=== PATIENT | male | born 2000 | race Asian ===

== ENCOUNTER 2023-09-14 14:45 | Outpatient (CLI) | payer OTHER ==
--- NOTE | 2023-09-14 22:06 | SLEEP CARE CONSULTATION ---
Information from patient questionnaire entered by Krys Lopez. I have reviewed and concur with the information entered by Krys Lopez. This document represents the service I personally performed and the decisions made by me, Shannan Wilkinson MD, [facility]. History of Present Illness Service Date and Time: 09/14/2023 1445 Reason for Visit: New patient Chief Complaint: reports: Unrefreshed sleep, Excessive daytime sleepiness, Fatigue, Other (I FREQUENTLY SLEEP 12+HRS) Date of Onset: 4YRS Usual bedtime: 12AM Time it takes to fall asleep: 1HRS Snores at night: No Observed to quit breathing while asleep: Yes Sleeps alone due to snoring: No Number of times waking at night: 1 Reasons for waking at night: reports: Bathroom Toss, Turn, or Twitch while sleeping: No Recalls having dreams: Yes Usually gets out of bed at: 1-2 Feels refreshed in the morning: No Morning headache: No Sleepy or fatigued during the day: Yes Ever fallen asleep while driving: Yes Takes day naps: Yes Dreams during day naps: Yes Prior sleep studies: No Additional HPI information: I have the pleasure of seeing Mr. Sue and his mother today regarding the possibility of his having a sleep disorder. As you know, she is a 23-year-old man who complains of unrefreshed sleep, persistent fatigue, and excessive daytime sleepiness for the past 4 years. The patient tells me that he normally goes to bed around midnight 2 am, and it takes him approximately 60 minutes to fall asleep. He does not snore but his mother thinks she has seen him quit breathing at night. He can recall waking up on the average of 1 time during the night. Most of the time he wakes up because of having to use the bathroom. He has awakened because of choking. There is a lot of tossing and turning in sleep. No somniloquy (sleep talking) or somnambulism (sleep walking). Generally, he can recall having dreams. In the morning he usually gets up out of the bed around 1 2 pm not feeling refreshed nor rested. He usually does not have a morning headache. During the day he complains of feeling sleepy and fatigued. His score on [place] Sleepiness Scale is 7 out of 24. He has fallen asleep while driving and has gone out of the ronald. He usually takes a 1-2 hour nap during the day. Upon falling asleep during the day he reports having dreams. He has never had sleep paralysis, experienced cataplexy or symptoms of restless leg syndrome. He denies having impaired concentration during the day. He has electrical engineering degree from [employer]. 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 His sleep habits also prevented him from working regular hours. A few years ago, he ordered a WatchPat study online and it was reported a negative. - Parasomnia Symptoms Ever been unable to move upon waking from sleep: No Walks in sleep: No Talks in sleep: No Ever acted out dreams in sleep: No Ever felt weak in the knees when startled or emotional: No Bothered by creepy, crawly, restless sensations in legs: No Problems with memory or concentration: No Subjective Initial [place] Sleepiness Scale score: 7 (09/14/23) Past Medical History Past Medical History: reports: Anxiety, Depression Social History The patient's occupation is a [employer]. Patient is Single and lives in . Have you smoked in the past 12 months: No Alcohol use: No Caffeine use: Yes Caffeine amount and frequency: ONCE A WEEK Family History Family history of sleep disordered breathing: Yes Family Hx Sleep Apnea: Mother: Snoring Allergies and Home Medications Known drug allergies: No Drug allergies reviewed: Yes Home medication list reviewed: Yes Review of Systems Review of systems same as previous: Yes Cardiovascular: denies: high blood pressure, palpitations, chest pain, irregular heart rate or pulse, leg or foot swelling, have to sleep sitting up, other Respiratory: denies: shortness of breath, wheeze, sputum production, chronic cough, other Gastrointestinal: denies: heartburn, difficulty swallowing, nausea, vomitting, diarrhea, abdominal pain, other Urinary: denies: incontinence, frequency, urgency, impotence, other Neurological: denies: headaches, seizure, head trauma, disorientation, speech dysfunction, gait or balance problems, fainting or unconsciousness, other Psychiatric: reports: anxiety, depression Ear/Nose/Throat: denies: nasal congestion, sinus problems, nose bleeds, dry mouth/throat, hoarseness, injury to nose, tonsillectomy, wisdom teeth removed, other Endocrine: denies: thyroid disease, history of goiter, sluggishness, too hot or cold, excessive thirst, increased appetite, increased urination, unexplained weakness, other Musculoskeletal: denies: joint pain, neck pain, back pain, joint swelling, muscle pain or cramping, mobility problems, other Immunologic: reports: allergies to food or environment Physical Exam Vital signs obtained and entered by: KRYS Reed MA Blood Pressure: 131/83 (LEFT ARM) Cuff size: regular Heart Rate: 77 O2 Saturation: 100 Height: 6 ft Weight: 204 lb Body Mass Index: 27.6 BMI Classification: Overweight Neck circumference: 14.75 Mood/affect: Normal HEENT: No craniofacial malformation Nostrils: patent to airflow Turbinates: swollen (left) Septum: deviated left Mouth and throat: narrow oropharynx Soft palate: long Hard palate: normal Uvula: normal Uvula visualization: 50% Mallampati Class II Tongue: normal in size Tonsils: small Chin and jaw: normal size and position Neck: normal w/o lymphadenopathy or thyromegaly Heart: regular rate and rhythm Lungs: clear bilaterally Extremities: no edema or clubbing Neurologic: intact Impression and Plan IMPRESSION: 1. Delayed sleep phase syndrome, with the patient going to bed late and waking up late. His physiological bedtime appears to be around 2:30 am and he does not get up until noon or 1 pm. He mother mentioned that he was into online efrem. I advised him to try to get out of bed earlier and be exposed to bright light. For a start, I would like him to get up at 10 am. His bedtime can be at midnight. 2. Hypersomnia, with the patient reporting 9 hours of sleep a night and 1 2 hours of nap during the day. He does not symptoms of narcolepsy besides the daytime sleepiness. Olanzapine can also be sedating due to its high affinity for the histamine H1 receptors. Therefore, a multiple sleep latency test (MSLT) will not be ordered. Plan: 1. Schedule an in-laboratory polysomnography. 2. Avoid long distance driving or when feeling sleepy. 3. Avoid alcohol, sedative and muscle relaxant around bedtime. 4. Wakeup earlier at 10 am and get exposed to the sunlight. 5. Return for follow up after the sleep study. Follow up with Sleep Care in: 1-2 months Visit Type: In Office Other Participants: Other (mother) Time Spent with Patient (minutes): 15 Provider Statement: I spent 100% of the Face to Face Visit with the patient with greater than 50% spent counseling the patient and coordination of care.
[2023-09-14 22:07] VITALS: BP 131/83; O2SAT 100
== END 2023-09-14 14:46 | disposition home or self-care (01) ==
LOC: SC 14:45
PROVIDERS: ATTEND Internal Medicine Pulmonary Disease
DX: G47.21 Circadian rhythm sleep disorder, delayed sleep phase type (principal); G47.10 Hypersomnia, unspecified; R41.89 Other symptoms and signs involving cognitive functions and awareness; G47.8 Other sleep disorders; F32.A Depression, unspecified; Z79.899 Other long term (current) drug therapy; E66.3 Overweight; Z68.27 Body mass index [BMI] 27.0-27.9, adult
CPT/HCPCS: 99202; 99212

== ENCOUNTER 2023-09-17 19:36 | Outpatient (CLI) | payer OTHER | END 2023-09-17 19:37 | disposition home or self-care (01) | LOC: SC 19:36 | PROVIDERS: ATTEND Internal Medicine Pulmonary Disease | DX: G47.10 Hypersomnia, unspecified (principal); R41.89 Other symptoms and signs involving cognitive functions and awareness; G47.8 Other sleep disorders; F32.A Depression, unspecified | CPT/HCPCS: 95810 ==

== ENCOUNTER 2023-09-28 14:06 | Outpatient (CLI) | payer OTHER ==
--- NOTE | 2023-09-29 08:03 | SLEEP CARE CONSULTATION ---
Information from patient questionnaire entered by Sina Lopez. I have reviewed and concur with the information entered by Sina Lopez. This document represents the service I personally performed and the decisions made by me, Shannan Wilkinson MD, [facility]. History of Present Illness Service Date and Time: 09/28/2023 1406 Initial [place] Sleepiness Scale score: 7 (09/14/23) Current [place] Sleepiness Scale score: 8 (09/28/23) Additional HPI information: Mr. Sue returned with his mother for follow up of the sleep study he had on 09/17/2023. The polysomnography showed that the patient had normal sleep efficiency. The sleep architecture was normal as well. Respiratory monitoring showed no evidence of sleep disordered breathing (AHI = 0.3) or hypoxia (daniel oxygen saturation of 90%). The patient slept mostly supine (supine AHI = 0.3; non-supine = 0.00). No audible snore. There was no significant periodic leg movement of sleep. Cardiac rhythm was normal sinus rhythm without significant arrhythmia. No abnormal behavior (parasomnia) observed during the night. The patient was informed of these findings. I explained to him that the sleep study was normal. He did not have any difficulty falling asleep early. His mother said for several days, he woke up earlier as instructed. ROS: Same as previous. Sleep Study - Results Type of Sleep Study: Polysomnography (COMPLETED 09/17/23) Prior sleep studies: No Allergies and Home Medications Drug allergies reviewed: Yes Home medication list reviewed: Yes Allergy and home medication list: Allergies No Known Drug Allergies Allergy (Verified 09/14/23 15:21) Review of Systems Review of systems same as previous: Yes (NO CHANGE) Physical Exam Vital signs obtained and entered by: SINA Reed MA Blood Pressure: 131/81 (LEFT ARM) Cuff size: regular Heart Rate: 71 O2 Saturation: 100 Height: 6 ft Weight: 197 lb 6.4 oz Body Mass Index: 26.7 BMI Classification: Overweight Impression and Plan IMPRESSION: 1. Delayed sleep phase syndrome, causing sleep onset insomnia and difficulty waking up early. Apparently, moving his wakeup time early is already working as seen during the sleep study. He was advised to keep moving his wakeup time earlier to where he wants it to be and do not deviate from it. His bedtime can be 9 hours before his wakeup time. If he continues to be sleepy during the day despite getting adequate sleep at night, I will consider ordering a multiple sleep latency test (MSLT). However, he would have to be off olanzapine for at least 2 weeks. PLAN: 1. Move wakeup time earlier. 2. Expose to sunlight for 30 minutes upon waking up every morning. 3. Go to bed 9 hours before wakeup time. 4. Return for a follow up if still sleepy once the delayed sleep phase syndrome is corrected. Counseling Topics: Activity level Follow up with Sleep Care in: as needed Visit Type: In Office Time Spent with Patient (minutes): 15 Provider Statement: I spent 100% of the Face to Face Visit with the patient with greater than 50% spent counseling the patient and coordination of care.
[2023-09-29 08:09] VITALS: BP 131/81; O2SAT 100
== END 2023-09-28 14:07 | disposition home or self-care (01) ==
LOC: SC 14:06
PROVIDERS: ATTEND Internal Medicine Pulmonary Disease
DX: G47.21 Circadian rhythm sleep disorder, delayed sleep phase type (principal)
CPT/HCPCS: 99212